=== PATIENT | male | born 2000 | race Caucasian/White ===

== ENCOUNTER 2022-07-10 15:57 | Emergency (ER) | payer BC, SELFPAY ==
[~2022-07-10] VITALS: Ht 177.8 cm; Wt 110.0 kg
[2022-07-10 22:08] VITALS: BP 178/87
== END 2022-07-11 00:05 | disposition left against medical advice (07) ==
LOC: M ED 15:57
DX: Z53.21 Procedure and treatment not carried out due to patient leaving prior to being seen by health care provider (principal)